=== PATIENT | male | born 1990 | race Two or more races ===

== ENCOUNTER 2020-07-09 21:48 | Emergency (ER) | payer SELFPAY ==
[~2020-07-09] VITALS: Ht 180.3 cm; Wt 72.6 kg
[2020-07-09 23:06] VITALS: BP 124/78
[2020-07-09] MEDS ORDERED: IBUPROFEN 400 MG TABLET ONE (23:20)
[2020-07-09] MEDS: IBUPROFEN 400 MG TABLET PO ONE (23:22)
--- NOTE | 2020-07-10 00:57 | NUR ---
Patient discharged to home in stable condition. Written and verbal after care instructions given. Patient verbalizes understanding of instruction.
== END 2020-07-10 00:57 | disposition home or self-care (01) ==
LOC: ER 21:51
DX: S93.492A Sprain of other ligament of left ankle, initial encounter (principal); X50.1XXA Overexertion from prolonged static or awkward postures, initial encounter; Y93.89 Activity, other specified; Y92.89 Other specified places as the place of occurrence of the external cause; Y99.8 Other external cause status
CPT/HCPCS: 73610-TC